=== PATIENT | male | born 1950 | race Caucasian/White ===

== ENCOUNTER 2020-09-09 14:28 | Emergency (ER) | payer MEDICARE, SELFPAY ==
[2020-09-09] VITALS (17 sets, daily range): BP systolic 111–127; BP diastolic 68–91; PULSE 53–78; RESP 16–17; TEMP 36.5; O2SAT 94–97
--- NOTE | ~2020-09-09 | CT_ITS ---
EXAMINATION: CT abdomen pelvis wo con DATE: 09/09/2020 16:24 INDICATION: Hematuria. Possible kidney stones. TECHNIQUE: Computed tomography (CT) of the abdomen and pelvis was performed without intravenous contr ast. The dose-length product was 246.31 mGy-cm. Automated exposure control and iterative reconstructi on technique were employed. COMPARISON: None. FINDINGS: There is a partially visualized 8 mm right lower lobe nodule, image 1. Heart size normal. T here is atherosclerosis of the aorta and coronary arteries. No evidence for aneurysm. There is a 6 mm left UPJ stone. There are multiple nonobstructing bilateral renal stones. No significant hydronephro sis. Bladder is decompressed limiting evaluation for wall thickening. The liver, spleen, pancreas, adrenal glands are unremarkable. Normal appendix. Nonobstructive bowel g as pattern. Small hiatal hernia. No free air or free fluid. There is moderate spondylosis at L4-5. No osteolytic or osteoblastic lesions. IMPRESSION: 1. Left UPJ stone measuring 6 mm without significant hydronephrosis. 2: Bilateral nonobstructing nephrolithiasis. 3: Partially visualized 8 mm pleural-based right lower lobe nodule,. Consider follow-up CT chest on a nonemergent basis. Reviewed, dictated and finalized at location A. IMPRESSION: 1. Left UPJ stone measuring 6 mm without significant hydronephrosis. 2: Bilateral nonobstructing nephrolithiasis. 3: Partially visualized 8 mm pleural-based right lower lobe nodule,. Consider f ollow-up CT chest on a nonemergent basis.
--- NOTE | ~2020-09-09 | XR_ITS ---
XR abdomen/kub 1V 09/09/2020 17:54 Indication: Blood in urine. Right flank pain. Procedure: KUB Comparison: No prior studies for comparison. Findings: There is left renal stone. Bowel gas pattern nonobstructive. There are pelvic phleboliths a nd vascular calcifications. Lung bases unremarkable. Impression: 1: Left nephrolithiasis. Reviewed, dictated and finalized at location A. Impression: 1: Left nephrolithiasis.
[2020-09-09 15:05] LABS: Basophils Percent Auto 0.7 % (0.2-1.2); Eosinophils Absolute Auto 0.2 K/mm3 (0-0.3); Eosinophils Percent Auto 3.1 % (0-4.4); Hematocrit 43.4 % (42.0-52.0); Hemoglobin 14.7 g/dL (14.0-18.0); Immature Granulocyte Absolute 0.01 K/mm3 (0.00-0.031); Immature Granulocyte Percent A 0.2 % (0-0.5); Lymphocytes Absolute Auto 1.87 K/mm3 (0.9-3.2); Lymphocytes Percent Auto 33.9 % (18.3-44.2); Mean Corpuscular HGB Conc 33.9 g/dl (32-36); Mean Corpuscular Hemoglobin 29.6 pg (26-34); Mean Corpuscular Volume 87.5 fl (80-100); Mean Platelet Volume 9.6 fl (7.4-10.4); Monocytes Absolute Auto 0.5 K/mm3 (0.1-0.6); Monocytes Percent Auto 8.9 % (2.6-8.5); Neutrophils Absolute Auto 2.9 K/mm3 (1.3-6.7); Neutrophils Percent Auto 53.2 % (45.5-73.1); Platelet Count Result 285 k/mm3 (150-375); Red Blood Count 4.96 M/mm3 (4.6-6.20); White Blood Count 5.5 K/mm3 (4.5-10.0)
[2020-09-09 15:16] LABS: Anion Gap 9 mmol/L (8-16); Blood Urea Nitrogen 17 mg/dL (9-20); Calcium 9.3 mg/dL (8.4-10.2); Carbon Dioxide 23 mmol/L (22-30); Chloride 107 mmol/L (98-107); Estimated CRCL calculation 71 ml/min; Estimated Glomerular Filt Rate > 60; Glucose 103 mg/dL (75-110); Potassium 3.9 mmol/L (3.4-5.0); Sodium 139 mmol/L (137-145)
[2020-09-09 15:20] LABS: Add Urine Microscopic? YES; Appearance Urine Cloudy (Clear); Bilirubin Urine Negative (Negative); Blood Urine 3+ (Negative); Color Urine Red (Yellow); Glucose Urine UA Negative (Negative); Ketones Urine Negative (Negative); Leukocyte Esterase Ur Negative LEU/UL (Negative); Mucus Urine Moderate /lpf; Nitrate Urine Positive (Negative); Protein Urine 2+ mg/dL (Negative); RBC Urine >75 /hpf (0-2); Specific Grav Ur 1.025 (1.001-1.035); Urobilinogen Urine Negative mg/dL (<2.0)
--- NOTE | 2020-09-09 16:07 | ED.MALEGU ---
HPI - Male Genitourinary General Chief complaint: Urogenital-Male Stated complaint: blood in urine Time Seen by Provider: 09/09/20 15:01 Source: patient Mode of arrival: ambulatory Limitations: no limitations History of Present Illness HPI Narrative: 70-year-old man History of kidney stones in the relatively distant past but no painful episodes anytime recently Has noted intermittent hematuria for the last 2 or 3 days Effectively has no other symptoms denies frequency dysuria Recently saw GI for blood in stool MD Complaint: other Onset (ago): day(s) Related Data Home Medications Medication Instructions Recorded Confirmed aspirin 81 mg tablet,delayed 81 mg PO DAILY 08/20/20 release atorvastatin 40 mg tablet 40 mg PO DAILY 08/20/20 metoprolol succinate PO 09/09/20 Allergies Allergy/AdvReac Type Severity Reaction Status Date / Time erythromycin base Allergy Mild Nausea Verified 09/09/20 14:29 Review of Systems Review of Systems: All systems reviewed & are unremarkable except as noted in HPI and below Constitutional: Constitutional: Denies chills, Denies fatigue, Denies fever(s), Denies headache(s) and Denies weakness Eyes: Eyes: Denies change in vision and Denies other visual disturbances ENT: Denies headache(s), Denies epistaxis, Denies nasal congestion and Denies sore throat Cardiovascular: Cardiovascular: Denies chest pain, Denies leg edema, Denies palpitations and Denies dyspnea Respiratory: Respiratory: Denies cough, Denies dyspnea and Denies wheezing Gastrointestinal: Gastrointestinal: Denies abdominal pain, Denies diarrhea, Denies nausea and Denies vomiting Comments: Hematochezia Genitourinary: Genitourinary: Reports hematuria, Denies dysuria, Denies urinary frequency and Denies urinary incontinence Musculoskeletal: Musculoskeletal: Denies deformity, Denies arthralgias, Denies joint swelling, Denies muscle weakness and Denies numbness Integumentary/Breasts: Skin/Breast: Denies rash, Denies unusual bruising and Denies wounds Neurologic: Denies Abnormal speech present, Denies headache(s), Denies focal weakness, Denies numbness and Denies weakness Psychiatric: Psychiatric: Reports no additional psychiatric complaints Endocrine: Endocrine: Denies fatigue and Denies palpitations Hematologic/Lymphatic: Hematologic/Lymphatic: Denies easy bleeding and Denies easy bruising Allergic/Immunologic: Allergic/Immunologic: Denies wheezing PMFSH Family History Family History Father Cerebrovascular accident Malignant neoplasm of prostate Mother Cerebrovascular accident Social History Social History Smoking packs per day: 1 Smoking cigarettes per day: 20.0 Years smoked: 10 Smoking pack-years: 10.00 Smoking status: Former smoker Tobacco type: cigarettes Second hand tobacco smoke exposure: Yes Smoking end date: 11/12/76 Alcohol intake: never Substance use: never Substance use type: does not use Gender identity (if verbalized by the patient): Male Exam Const: General: no acute distress, well developed and awake Nutritional Appearance: well nourished Orientation/consciousness: patient oriented x3 (alert) Limitations: no limitations HENMT: Head: normocephalic and atraumatic Ears: external ears normal General nose exam: No nasal discharge present and no epistaxis Face and sinus: face symmetric Eyes: Conjunctivae: conjunctivae normal Sclera: sclerae normal EOM: EOMs intact bilaterally Neck: Neck: normal visual inspection, supple and no JVD Chest: Chest palpation & inspection: deferred Resp: Effort & Inspection: normal respiratory effort Auscultation: clear to auscultation bilaterally, no rales, no rhonchi, no wheezes and other (BS =) Cardio: Rate: regular rate Rhythm: regular rhythm Heart sounds: no gallops and no murmurs GI: Inspectio
== END 2020-09-09 17:59 | disposition home or self-care (01) ==
PROVIDERS: Emergency Medicine; Emergency Provider Emergency Medicine; PCP Family Medicine
DX: N20.0 Calculus of kidney (principal); R31.9 Hematuria, unspecified; Z87.442 Personal history of urinary calculi; R91.1 Solitary pulmonary nodule; Z87.891 Personal history of nicotine dependence
CPT/HCPCS: 36415; 74018; 74176; 80048; 81001; 85025; 87077; 87086; 87088; 87186; 99284

== ENCOUNTER 2020-09-11 22:42 | Emergency (ER) | payer MEDICARE, SELFPAY ==
--- NOTE | ~2020-09-11 | CT_ITS ---
EXAMINATION: CT abdomen pelvis wo con DATE: 09/11/2020 23:34 INDICATION: Left flank pain TECHNIQUE: Computed tomography (CT) of the abdomen and pelvis was performed without intravenous contr ast. The dose-length product (DLP) was 552.29 mGy-cm. Automated exposure control and iterative recons truction technique were employed. COMPARISON: 09/09/2020 FINDINGS: Minimal dependent atelectasis is present in the lung bases. The heart size is normal. The l iver, spleen, pancreas, gallbladder, and adrenal glands are normal. There is a 6 mm stone in the left proximal ureter which has migrated from the ureteropelvic junction and causes mild left hydronephros is. Nonobstructing stones of the right kidney measure up to 4 mm. Nonobstructing stones of the left k idney measure up to 6 mm. No pathologically enlarged abdominal or pelvic lymph nodes are identified. There is no free intraperitoneal gas or evidence of bowel obstruction. The appendix is normal. There is calcified atherosclerosis of the aorta and many of the other arteries. There is moderate lumbar sp ondylosis. A fat-containing umbilical hernia is noted. IMPRESSION: 1. 6 mm stone in the proximal left ureter migrated from the ureteropelvic junction causing mild hydro nephrosis. 2. Bilateral nonobstructing nephrolithiasis. Reviewed, dictated and finalized at location A. 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 6 mm stone in the proximal left ureter migrated from the ureteropelvic junct ion causing mild hydronephrosis. 2. Bilateral nonobstructing nephrolithiasis.
[2020-09-11 22:49] VITALS: BP 152/99; PULSE 45; RESP 17; O2SAT 95
[2020-09-11 22:52] VITALS: BP 152/99; PULSE 51; RESP 16; TEMP 36.6; O2SAT 97
[2020-09-11] MEDS: MORPHINE SULFATE (*CRX) 4 MG/ML INJ IV PUSH (23:14)
[2020-09-11] MEDS: SODIUM CHLORIDE 0.9% IV 1,000 ML 999 ML IV CONT (23:14)
[2020-09-11 23:15] LABS: Basophils Absolute Auto 0.1 K/mm3 (0.0-0.1); Basophils Percent Auto 0.4 % (0.2-1.2); Eosinophils Absolute Auto 0.1 K/mm3 (0-0.3); Eosinophils Percent Auto 0.4 % (0-4.4); Hematocrit 44.7 % (42.0-52.0); Hemoglobin 15.1 g/dL (14.0-18.0); Immature Granulocyte Absolute 0.02 K/mm3 (0.00-0.031); Immature Granulocyte Percent A 0.2 % (0-0.5); Lymphocytes Absolute Auto 1.98 K/mm3 (0.9-3.2); Lymphocytes Percent Auto 16.2 % (18.3-44.2); Mean Corpuscular HGB Conc 33.8 g/dl (32-36); Mean Corpuscular Volume 88.7 fl (80-100); Mean Platelet Volume 9.5 fl (7.4-10.4); Monocytes Absolute Auto 0.8 K/mm3 (0.1-0.6); Monocytes Percent Auto 6.6 % (2.6-8.5); Neutrophils Absolute Auto 9.3 K/mm3 (1.3-6.7); Neutrophils Percent Auto 76.2 % (45.5-73.1); Platelet Count Result 291 k/mm3 (150-375); Red Blood Count 5.04 M/mm3 (4.6-6.20); Red Cell Distribution Width 13.2 % (11.5-14.5); White Blood Count 12.2 K/mm3 (4.5-10.0)
[2020-09-11 23:27] LABS: Anion Gap 12 mmol/L (8-16); Blood Urea Nitrogen 14 mg/dL (9-20); Calcium 9.8 mg/dL (8.4-10.2); Carbon Dioxide 20 mmol/L (22-30); Chloride 108 mmol/L (98-107); Estimated CRCL calculation 59 ml/min; Estimated Glomerular Filt Rate > 60; Glucose 123 mg/dL (75-110); Potassium 4.1 mmol/L (3.4-5.0); Sodium 140 mmol/L (137-145)
[2020-09-11 23:45] VITALS: BP 144/91; PULSE 55; RESP 18; O2SAT 97
--- NOTE | 2020-09-12 00:07 | ED.ABDPAIN ---
HPI - Abdominal Pain General Chief Complaint: Abdominal Pain Stated Complaint: kidney stone pain Time Seen by Provider: 09/11/20 22:56 History of Present Illness HPI narrative: Patient is a 70-year-old male who presents the ER with left flank pain. Ongoing for last couple days. Has recently been diagnosed with a kidney stone. He has not passed it. He is not seeing any blood in his urine at this time. Pain radiates into his groin. No dysuria or fever. Mild nausea and vomiting associated with this. Has been taking [id number] pain medication without relief. Related Data Home Medications Medication Instructions Recorded Confirmed aspirin 81 mg tablet,delayed 81 mg PO DAILY 08/20/20 release atorvastatin 40 mg tablet 40 mg PO DAILY 08/20/20 metoprolol succinate PO 09/09/20 Allergies Allergy/AdvReac Type Severity Reaction Status Date / Time erythromycin base Allergy Mild Nausea Verified 09/09/20 14:29 Review of Systems Review of Systems: All systems reviewed & are unremarkable except as noted in HPI and below Constitutional: Constitutional: Denies chills, Denies fever(s) and Denies weakness ENT: Denies nasal congestion and Denies sore throat Cardiovascular: Cardiovascular: Denies chest pain and Denies radiating jaw, neck or arm pain Gastrointestinal: Gastrointestinal: Reports abdominal pain, Denies diarrhea, Reports nausea and Reports vomiting Genitourinary: Genitourinary: Denies hematuria, Denies dysuria and Reports urinary frequency PMFSH Past Medical History Medical History (Updated 09/12/20 @ 01:36 CDT by Adrián Estrella MD) CAD (coronary artery disease) Hyperlipemia Hypertension Family History Family History Father Cerebrovascular accident Malignant neoplasm of prostate Mother Cerebrovascular accident Social History Social History Smoking packs per day: 1 Smoking cigarettes per day: 20.0 Years smoked: 10 Smoking pack-years: 10.00 Smoking status: Former smoker Tobacco type: cigarettes Second hand tobacco smoke exposure: Yes Smoking end date: 11/12/76 Alcohol intake: never Substance use: never Substance use type: does not use Gender identity (if verbalized by the patient): Male Exam Narrative: Exam Narrative: GENERAL: Well-appearing, well-nourished, and in no acute distress. HEAD: Normocephalic, atraumatic. CHEST: Clear to auscultation. No respiratory distress. HEART: Regular rate and rhythm. Normal peripheral pulses. ABDOMEN: Soft, nontender, nondistended. EXTREMITIES: Normal range of motion. No edema. SKIN: Warm, dry, no rash. NEURO: Alert and oriented x3. PSYCH: Normal mood and affect. Course Course Emergency Course: Pain improved with morphine x2. No UTI. Feels he may benefit from [place] and Flomax at home. He needs follow-up with his urologist. Vital Signs Vital signs: Vital Signs Pulse Rate 45 L 09/11/20 22:49 Respiratory Rate 17 09/11/20 22:49 Blood Pressure 152/99 H 09/11/20 22:49 Pulse Oximetry 95 09/11/20 22:49 Temperature 97.9 F 09/11/20 22:52 Pulse Rate 63 09/12/20 00:40 Respiratory Rate 16 09/12/20 00:40 Blood Pressure 132/76 09/12/20 00:40 Pulse Oximetry 97 09/12/20 00:40 MDM - Abdominal Pain Lab Data Result diagrams: 09/11/20 23:10 09/11/20 23:10 Labs: Lab Results 09/11/20 09/11/20 09/12/20 Range/Units 23:10 23:10 01:06 SUPER[employer]PER[employer] WBC 12.2 H (4.5-10.0) K/mm3 RBC 5.04 (4.6-6.20) M/mm3 Hgb 15.1 (14.0-18.0) g/dL Hct 44.7 (42.0-52.0) % MCV 88.7 (80-100) fl MCH 30.0 (26-34) pg MCHC 33.8 (32-36) g/dl RDW 13.2 (11.5-14.5) % Plt Count 291 (150-375) k/mm3 MPV 9.5 (7.4-10.4) fl Immature Gran % (Auto) 0.2 (0-0.5) % Neut % (Auto) 76.2 H (45.5-73.1) % Lymph % (Auto) 16.2 L (18.3-44.2)
[2020-09-12 00:40] VITALS: BP 132/76; PULSE 63; RESP 16; O2SAT 97
[2020-09-12] MEDS: MORPHINE SULFATE (*CRX) 4 MG/ML INJ IV PUSH (00:40)
[2020-09-12 01:19] LABS: Add Urine Microscopic? YES; Appearance Urine Clear (Clear); Bilirubin Urine Negative (Negative); Blood Urine 3+ (Negative); Color Urine Yellow (Yellow); Glucose Urine UA Negative (Negative); Ketones Urine 1+ mg/dL (Negative); Leukocyte Esterase Ur Negative LEU/UL (Negative); Mucus Urine Few /lpf; Nitrate Urine Negative (Negative); Protein Urine 1+ mg/dL (Negative); RBC Urine >75 /hpf (0-2); Specific Grav Ur 1.027 (1.001-1.035); Squamous Epithelial Cell Urine Rare /hpf (Few); Urobilinogen Urine Negative mg/dL (<2.0); WBC Urine 0-3 /hpf
[2020-09-12 01:50] VITALS: BP 130/80; PULSE 59; RESP 16; O2SAT 96
== END 2020-09-12 01:50 | disposition home or self-care (01) ==
PROVIDERS: Emergency Provider Emergency Medicine; PCP Family Medicine
DX: N13.2 Hydronephrosis with renal and ureteral calculous obstruction (principal); I25.10 Atherosclerotic heart disease of native coronary artery without angina pectoris; E78.5 Hyperlipidemia, unspecified; I10 Essential (primary) hypertension; Z79.82 Long term (current) use of aspirin; Z87.891 Personal history of nicotine dependence
CPT/HCPCS: 36415; 74176; 80048; 81001; 85025; 96361; 96374; 96376; 99284; J2270; J7030

== ENCOUNTER 2020-09-16 09:08 | Outpatient (CLI) | payer MEDICARE, SELFPAY ==
--- NOTE | ~2020-09-16 | XR_ITS ---
EXAMINATION: XR abdomen/kub 1V INDICATION: Left ureteral stone TECHNIQUE: Supine views of the abdomen were obtained on 2 radiographs. COMPARISON: 09/09/2020; CT, 09/11/2020 FINDINGS: A 6 mm calcification projects in the left pelvis at the expected location of the distal ure ter, consistent with known left ureteral. An unchanged phlebolith is noted in the left pelvis. The nina wel gas pattern is normal. The visualized lung bases are clear. There is mild osteoarthritis of the h ips. IMPRESSION: 1. Interval distal migration of the known left ureteral stone to the distal ureter. Reviewed, dictated and finalized at location A. 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 Interval distal migration of the known left ureteral stone to the distal ure ter.
== END 2020-09-16 09:09 | disposition home or self-care (01) ==
PROVIDERS: PCP Family Medicine; Visit Provider Urology
DX: N20.1 Calculus of ureter (principal)
CPT/HCPCS: 74018

== ENCOUNTER 2020-09-17 01:56 | Day surgery (SDC) | payer MEDICARE, SELFPAY ==
[2020-09-16 10:45] VITALS: BMI 25.1
--- NOTE | 2020-09-16 12:51 | WPDANESEPPF ---
Anes - Initial Pre Proc Eval Procedure: Operation Date: 09/17/20 15:30 Proposed Procedures p Cystoscopy, Left Ureteroscopy, Left Retrograde Pyelogram, Left Stone Extraction, - Duran Dubon MD s Possible Holmium Laser Procedure, Possible Stent Placement - Duran Dubon MD Date/Time: 09/16/20 12:51 Surgeon: Duarn Dubon MD Pre Op Diagnosis: left ureteral calculus Patient Data Age: 70 Gender: M Height: 1.78 m Weight: 79.5 kg Allergies Allergy/AdvReac Type Severity Reaction Status Date / Time erythromycin base Allergy Mild Nausea Verified 09/16/20 10:41 Home Medications Medication Instructions Recorded Confirmed Type aspirin 81 mg tablet,delayed 81 mg PO DAILY 08/20/20 09/16/20 History release atorvastatin 40 mg tablet 40 mg PO DAILY 08/20/20 09/16/20 History metoprolol succinate 25 mg PO HS 09/09/20 09/16/20 History nitrofurantoin monohyd/m-cryst 100 mg PO Q12H 5 Days #20 cap 09/09/20 09/16/20 Rx [Macrobid] hydrocodone-acetaminophen 1 tablet PO Q6H PRN #20 tablet 09/12/20 09/16/20 Rx tamsulosin 0.4 mg PO DAILY #7 cap 09/12/20 09/16/20 Rx ECG: nsr Patient hx anesthesia problems: none Family hx anesthesia problems: none PMFSH Past Medical History Medical History (Updated 09/16/20 @ 12:56 by Christopher Blandon MD) Bloody stool BPH (benign prostatic hyperplasia) CAD (coronary artery disease) Hyperlipemia Hypertension Family History Family History Father Cerebrovascular accident Malignant neoplasm of prostate Mother Cerebrovascular accident Social History Social History Smoking packs per day: 1 Smoking cigarettes per day: 20.0 Years smoked: 10 Smoking pack-years: 10.00 Smoking status: Former smoker Tobacco type: cigarettes Second hand tobacco smoke exposure: Yes Smoking end date: 11/12/76 Additional smoking assessment comments: STATES SMOKED FOR 10YRS QUIT AGE MID 20'S Alcohol intake: never Substance use: never Substance use type: does not use Living arrangements: alone Gender identity (if verbalized by the patient): Male Spiritual care concerns: No Anes - Eval Final PreProcedure Day of Procedure 09/16/20 12:51 Patient weight: normal Heart: regular rate and rhythm Lungs: clear to auscultation and normal air movement Airway: Mallampati scale class II Neurological: alert and oriented Last oral intake: >/= 8 hours ASA classification: III Emergent: no Anesthetic plan: proceed Anesthesia type and monitoring: general LMA and ETT Informed Consent: The patient's anesthetic plan and its attendant risks and benefits were discussed with the patient/family/POA. Questions were solicited and answers provided to the satisfaction of the patient/family/POA.
--- NOTE | ~2020-09-17 | XR_ITS ---
EXAMINATION: XR retrograde pyelo w/stent LT DATE: 09/17/2020 17:56 INDICATION: Left ureteral stone. TECHNIQUE: 7 intraoperative fluoroscopic views of the abdomen and pelvis were obtained. I was not pre sent. Fluoroscopy exposure time was 19 seconds. COMPARISON: CT abdomen and pelvis 09/11/2020 FINDINGS: The left-sided retrograde pyelogram is unremarkable. The final images demonstrate a left in ternal ureteral stent in expected position. IMPRESSION: 1. Left internal ureteral stent in expected position. Reviewed, dictated and finalized at location A. IC INTERVIEWER
--- NOTE | 2020-09-17 14:00 | ECG_ITS ---
Measurements Intervals [place] Rate: 54 P: 29 SC: 149 QRS: 13 QRSD: 97 T: 39 QT: 431 QTc: 411 Interpretive Statements SINUS BRADYCARDIA EARLY PRECORDIAL R/S TRANSITION BORDERLINE ECG Electronically Signed On 09-17-2020 14:40:02 SUPERVISOR [employer] by Sabino Miller D.O.
--- NOTE | 2020-09-17 14:07 | WPDHPUPDATE1 ---
History and Physical Update Update Date/Time: 09/17/20 14:07 History and Physical has been reviewed, including an updated exam of the patient. There are NO changes in the patient's condition. Risks, benefits, and alternatives have been discussed and questions answered. Patient agrees to proceed with procedure. Plan for cysto, left retrograde, left ureteroscopy with stone extraction, possible laser and stent placement.
[2020-09-17 14:15] VITALS: BP 119/72; PULSE 56; RESP 18; TEMP 36.2; O2SAT 97
[2020-09-17] MEDS: LACTATED RINGERS 1,000 ML 30 ML IV CONT (14:15)
[2020-09-17] MEDS: ceFAZolin 2 GM/D5W 50 ML 2 GM/50 ML BAG IVPB (17:23)
--- NOTE | 2020-09-17 17:52 | PM.PROC ---
Procedure Note - Detailed Date of procedure: 09/17/20 Pre-op diagnosis: left ureteral calculus Post-op diagnosis: same Procedure performed: Cystoscopy, left retrograde pyelogram, left ureteroscopy with holmium laser, stone extraction, left stent placement 4.8 [place] contour Description of procedure: patient is taken to the operative suite and correctly identified. Once anesthesia was obtained he was placed in dorsal lithotomy position and prepped and draped usual sterile fashion. Twenty-two [place] scope was inserted in the bladder left ureteral orifice was cannulated with a guidewire. It was dilated with a 8/10 dilator. Rigid ureteral scope was then inserted the stone was visualized. It was too large to retrieve 1 piece. Using a laser fiber we fragmented in multiple pieces. The largest was sent for analysis. Reinspection revealed no residual stones. Pyelogram was then performed. There were no filling defects noted. 4.8 [place] contour stent was then placed with the proximal end coiled in the renal pelvis and the distal in the bladder. Bladder was drained 2% viscous lidocaine was inserted urethra. Patient should state that he had a mildly enlarged prostate there were no tumors noted in the bladder. No median lobe identified. Rectal exam was then performed at termination procedure he with smooth about 40 g without any nodules. Surgeon: Duran Dubon MD Drains: Yes Packing: No Pathology: yes Complications: No immediate complications Condition: stable Disposition: PACU
[2020-09-17 17:56] VITALS: BP 110/69; PULSE 52; RESP 16; TEMP 36.3; O2SAT 100
[2020-09-17 18:10] VITALS: BP 125/77; PULSE 54; RESP 10; O2SAT 100
[2020-09-17 18:25] VITALS: BP 125/78; PULSE 57; RESP 14; O2SAT 99
[2020-09-17 18:48] VITALS: BP 128/74; PULSE 73
[2020-09-17 19:15] VITALS: BP 126/66; PULSE 58
== END 2020-09-17 19:30 | disposition home or self-care (01) ==
PROVIDERS: PCP Family Medicine; Visit Provider Urology
PROC: (CPT 52352; principal; 2020-09-17 15:30)
PROC: (CPT 52356; 2020-09-17 15:30)
DX: N20.1 Calculus of ureter (principal); I10 Essential (primary) hypertension; E78.5 Hyperlipidemia, unspecified; I25.10 Atherosclerotic heart disease of native coronary artery without angina pectoris; N40.0 Benign prostatic hyperplasia without lower urinary tract symptoms; Z79.82 Long term (current) use of aspirin; Z87.891 Personal history of nicotine dependence
CPT/HCPCS: 52356; 74420; 82365; 88300; 93005; A9270; C1769; C2617; J0690; J1100; J2405; J2704; J3010; J7120; Q9966

== ENCOUNTER 2020-09-24 02:37 | Outpatient (CLI) | payer MEDICARE, SELFPAY ==
[2020-09-24 19:52] LABS: SARS-CoV-2 RNA PCR Negative
== END 2020-09-24 02:38 | disposition home or self-care (01) ==
LOC: ANHCOVIDDT 02:37
PROVIDERS: PCP Family Medicine; Visit Provider Internal Medicine Gastroenterology
DX: Z01.812 Encounter for preprocedural laboratory examination (principal); Z20.828 Contact with and (suspected) exposure to other viral communicable diseases
CPT/HCPCS: 87635; C9803; U0003

== ENCOUNTER 2020-09-27 01:04 | Day surgery (SDC) | payer MEDICARE, SELFPAY ==
[2020-09-21 08:46] VITALS: BMI 25.0
--- NOTE | 2020-09-26 13:29 | WPDANESEPP ---
Anes - Eval Pre Procedure Procedure: Operation Date: 09/27/20 07:30 Proposed Procedures p Colonoscopy - Chace Engel MD Date/Time: 09/26/20 13:29 Pre Op Diagnosis: melena Patient Data Age: 70 Gender: M Height: 1.78 m Weight: 79 kg Allergies Allergy/AdvReac Type Severity Reaction Status Date / Time erythromycin base Allergy Mild Nausea Verified 09/21/20 08:40 Home Medications Medication Instructions Recorded Confirmed Type aspirin 81 mg tablet,delayed 81 mg PO DAILY 08/20/20 09/21/20 History release atorvastatin 40 mg tablet 40 mg PO DAILY 08/20/20 09/21/20 History metoprolol succinate 25 mg PO HS 09/09/20 09/21/20 History Patient hx anesthesia problems: none Family hx anesthesia problems: none PMFSH Past Medical History Medical History Bloody stool BPH (benign prostatic hyperplasia) CAD (coronary artery disease) Depression Hyperlipemia Hypertension Mitral valve prolapse Family History Family History Father Cerebrovascular accident Malignant neoplasm of prostate Mother Cerebrovascular accident Social History Social History Smoking packs per day: 1 Smoking cigarettes per day: 20.0 Years smoked: 10 Smoking pack-years: 10.00 Smoking status: Never smoker Tobacco type: cigarettes Second hand tobacco smoke exposure: Yes Smoking end date: 11/12/76 Additional smoking assessment comments: STATES SMOKED FOR 10YRS QUIT AGE MID 20'S Alcohol intake: never Substance use: never Substance use type: does not use Gender identity (if verbalized by the patient): Male Spiritual care concerns: No Exam Day of Procedure 09/26/20 13:29
[2020-09-27] MEDS: LACTATED RINGERS 1,000 ML 150 ML IV CONT (06:29)
[2020-09-27 06:31] VITALS: BP 112/73; PULSE 79; RESP 18; TEMP 36.4; O2SAT 97; BMI 25.0
--- NOTE | 2020-09-27 07:23 | WPDANESEPPF ---
Anes - Initial Pre Proc Eval Procedure: Operation Date: 09/27/20 07:30 Proposed Procedures p Colonoscopy - Chace Engel MD Date/Time: 09/27/20 07:23 Surgeon: Chace Engel MD Pre Op Diagnosis: melena Patient Data Age: 70 Gender: M Height: 5 ft 10 in Weight: 79 kg Last Vital Signs Temp 97.5 F L 09/27/20 06:31 Pulse 79 09/27/20 06:31 Resp 18 09/27/20 06:31 BP 112/73 09/27/20 06:31 Pulse Ox 97 09/27/20 06:31 Allergies Allergy/AdvReac Type Severity Reaction Status Date / Time erythromycin base Allergy Mild Nausea Verified 09/27/20 06:30 Home Medications Medication Instructions Recorded Confirmed Type aspirin 81 mg tablet,delayed 81 mg PO DAILY 08/20/20 09/27/20 History release atorvastatin 40 mg tablet 40 mg PO DAILY 08/20/20 09/21/20 History metoprolol succinate 25 mg PO HS 09/09/20 09/21/20 History Patient hx anesthesia problems: none Family hx anesthesia problems: none PMFSH Past Medical History Medical History Bloody stool BPH (benign prostatic hyperplasia) CAD (coronary artery disease) Depression Hyperlipemia Hypertension Mitral valve prolapse Family History Family History Father Cerebrovascular accident Malignant neoplasm of prostate Mother Cerebrovascular accident Social History Social History Smoking packs per day: 1 Smoking cigarettes per day: 20.0 Years smoked: 10 Smoking pack-years: 10.00 Smoking status: Former smoker Tobacco type: cigarettes Second hand tobacco smoke exposure: Yes Smoking end date: 11/12/76 Additional smoking assessment comments: STATES SMOKED FOR 10YRS QUIT AGE MID 20'S Alcohol intake: never Substance use: never Substance use type: does not use Living arrangements: alone Gender identity (if verbalized by the patient): Male Spiritual care concerns: No Anes - Eval Final PreProcedure Day of Procedure 09/27/20 07:23 Patient weight: normal Heart: regular rate and rhythm Lungs: clear to auscultation Airway: Mallampati scale class II Neurological: alert and oriented Last oral intake: >/= 8 hours ASA classification: III Emergent: no Anesthetic plan: proceed Anesthesia type and monitoring: general GIVS and standard monitoring Informed Consent: The patient's anesthetic plan and its attendant risks and benefits were discussed with the patient/family/POA. Questions were solicited and answers provided to the satisfaction of the patient/family/POA.
--- NOTE | 2020-09-27 07:36 | WPDHPUPDATE1 ---
History and Physical Update Update Date/Time: 09/27/20 07:36 History and Physical has been reviewed, including an updated exam of the patient. There are NO changes in the patient's condition. Risks, benefits, and alternatives have been discussed and questions answered. Patient agrees to proceed with procedure.
[2020-09-27 07:59] VITALS: BP 94/62; PULSE 67; RESP 19; O2SAT 96
[2020-09-27 08:09] VITALS: BP 103/69; PULSE 69; RESP 22; O2SAT 97
[2020-09-27 08:19] VITALS: BP 111/69; PULSE 63; RESP 20; O2SAT 97
== END 2020-09-27 08:33 | disposition home or self-care (01) ==
PROVIDERS: PCP Family Medicine; Visit Provider Internal Medicine Gastroenterology
PROC: 0DJD8ZZ Inspection of Lower Intestinal Tract, Via Natural or Artificial Opening Endoscopic (ICD-10-PCS; CPT 45378; principal; 2020-09-27 07:30)
DX: K62.5 Hemorrhage of anus and rectum (principal); K63.3 Ulcer of intestine; K52.9 Noninfective gastroenteritis and colitis, unspecified; K64.4 Residual hemorrhoidal skin tags; K64.8 Other hemorrhoids; I10 Essential (primary) hypertension; E78.5 Hyperlipidemia, unspecified; I34.1 Nonrheumatic mitral (valve) prolapse; I25.10 Atherosclerotic heart disease of native coronary artery without angina pectoris; N40.0 Benign prostatic hyperplasia without lower urinary tract symptoms; F32.9 Major depressive disorder, single episode, unspecified; Z79.82 Long term (current) use of aspirin; Z87.891 Personal history of nicotine dependence
CPT/HCPCS: 45380; 88305; J2704; J7120

== ENCOUNTER 2020-11-02 09:50 | Outpatient (CLI) | payer MEDICARE, SELFPAY ==
--- NOTE | ~2020-11-02 | XR_ITS ---
EXAMINATION: XR abdomen/kub 1V INDICATION: Left ureteral stone TECHNIQUE: Supine views of the abdomen were obtained on 2 radiographs. COMPARISON: 09/16/2020 FINDINGS: A 5 mm calcification projects in the left pelvis at the expected location of the left dista l ureter. Stable pelvic phleboliths are noted. Stones of the kidneys measure up to 2 mm on the right and 5 mm on the left. The bowel gas pattern is normal. There is mild lumbar spondylosis and mild oste oarthritis of the hips. IMPRESSION: 1. 5 mm left pelvic calcification which could reflect a previously described distal ureteral stone. 2. Bilateral nephrolithiasis. Reviewed, dictated and finalized at location A. ER CREW WORKER IMPRESSION: 1. 5 mm left pelvic calcification which could reflect a previously described di stal ureteral stone. 2. Bilateral nephrolithiasis.
== END 2020-11-02 09:51 | disposition home or self-care (01) ==
LOC: ANHIMG 09:54
PROVIDERS: PCP Family Medicine; Visit Provider Urology
DX: N20.2 Calculus of kidney with calculus of ureter (principal)
CPT/HCPCS: 74018

== ENCOUNTER → 2020-11-02 13:24 | Outpatient (CLI) | payer MEDICARE, SELFPAY ==
--- NOTE | ~2020-11-02 | XR_ITS ---
EXAMINATION: XR heel LT min 2V DATE: 11/02/2020 13:48 INDICATION: Left heel pain. TECHNIQUE: 2 views of left calcaneus were obtained. COMPARISON: None. FINDINGS: Bone alignment is normal. No fracture. Joint spaces are normal. There are enthesophytes at the posterior and plantar aspects of calcaneal tuberosity. IMPRESSION: 1. No fracture. Reviewed, dictated and finalized at location A. NOMY TECHNICIAN IMPRESSION: 1. No fracture.
--- NOTE | ~2020-11-02 | XR_ITS ---
EXAMINATION: XR foot LT min 3V DATE: 11/02/2020 13:48 INDICATION: Left foot pain. TECHNIQUE: 4 views of left foot were obtained. COMPARISON: None. FINDINGS: Bone alignment is normal. No fracture. There is mild osteoarthrosis of first metatarsophala ngeal joint and some of the interphalangeal joints. There are enthesophytes at the posterior and plan tar aspects of calcaneal tuberosity. IMPRESSION: 1. Mild polyarticular osteoarthritis. Reviewed, dictated and finalized at location A. RUCTIONAL SERVICES SPECIALIST
== END ==
PROVIDERS: PCP Family Medicine; Visit Provider Physician Assistant
DX: M19.072 Primary osteoarthritis, left ankle and foot (principal)
CPT/HCPCS: 73630; 73650

== ENCOUNTER 2021-03-19 09:04 | Outpatient (CLI) | payer MEDICARE, SELFPAY ==
--- NOTE | ~2021-03-19 | CT_ITS ---
EXAMINATION: CT abdomen pelvis wo/w con DATE: 03/19/2021 09:30 INDICATION: Renal mass TECHNIQUE: Computed tomography (CT) of the abdomen and pelvis was performed without and with 100 cc O mnipaque 350 intravenous contrast. The dose-length product was 1137.50 mGy-cm. Automated exposure con trol and iterative reconstruction technique were employed. COMPARISON: 09/11/2020 FINDINGS: there are mild emphysematous changes in the lung bases. Heart size normal. No significant p leural or pericardial effusion. Small hiatal hernia.. There are nonobstructing bilateral renal stones. There is gallstone. Fat-containing umbilical hernia. The liver, spleen, pancreas, adrenal glands are unremarkable. There is moderate atherosclerosis of th e aorta without aneurysm. Nonobstructive bowel gas pattern. Normal appendix. There is a nonenhancing 6 mm exophytic right renal lesion, most likely complicated cysts. There is a 12 mm hypodense lesion lower pole of the left kidney measuring 20 Hounsfield units, compatible with a cyst. There are multiple smaller additional subcentimeter hypodense lesions of the kidneys, most lik case benign cysts. Mild-moderate lumbar spondylosis. IMPRESSION: 1. Multiple low density lesions of the kidneys, most likely combination of benign simple and complica garcia cysts. Many of these are too small to adequately characterize. 2: Bilateral nonobstructing nephrolithiasis. Reviewed, dictated and finalized at location A. IMPRESSION: 1. Multiple low density lesions of the kidneys, most likely combination of crys gn simple and complicated cysts. Many of these are too small to adequately tray acterize. 2: Bilateral nonobstructing nephrolithiasis.
--- NOTE | ~2021-03-19 | XR_ITS ---
XR abdomen/kub 1V 03/19/2021 09:21 INDICATION: Renal mass TECHNIQUE: KUB COMPARISON: Comparison to multiple prior studies sequentially, with oldest reviewed study dated 08/13. FINDINGS: Bowel gas pattern is normal. Moderate colonic fecal loading. There is no evidence of free a ir, mass, organomegaly, ascites or obstruction. No abnormal calculi are seen. The bones appear inta ct. IMPRESSION: 1: No acute abdominal abnormality identified. Reviewed, dictated and finalized at location A.
[2021-03-19 09:30] LABS: Estimated Glomerular Filt Rate > 60
== END 2021-03-19 09:05 | disposition home or self-care (01) ==
LOC: ANHIMG 09:05
PROVIDERS: PCP Family Medicine; Visit Provider Urology
DX: N28.89 Other specified disorders of kidney and ureter (principal); N20.0 Calculus of kidney
CPT/HCPCS: 74018; 74178; Q9967

== ENCOUNTER 2023-05-25 03:29 | Day surgery (SDC) | payer MEDICARE, SELFPAY ==
[2023-05-14 13:58] VITALS: BMI 27.8
[2023-05-25 08:41] VITALS: BP 126/83; PULSE 52; RESP 18; O2SAT 100; BMI 27.3
[2023-05-25] MEDS: LACTATED RINGERS 1,000 ML 150 ML IV CONT (08:55)
--- NOTE | 2023-05-25 09:41 | P.PNAN_ITS ---
Anes - Initial Pre Proc Eval Procedure: Operation Date: 05/25/23 09:45 Proposed Procedures p Esophagogastroduodenoscopy - Chace Engel MD Date/Time: 05/25/23 09:41 Surgeon: Chace Engel MD Pre Op Diagnosis: GERD Patient Data Age: 73 Gender: M Height: 1.75 m Weight: 84 kg Last Vital Signs Pulse 52 L 05/25/23 08:41 Resp 18 05/25/23 08:41 BP 126/83 05/25/23 08:41 Pulse Ox 100 05/25/23 08:41 O2 Del Method Room Air 05/25/23 08:41 Allergies Allergy/AdvReac Type Severity Reaction Status Date / Time erythromycin base Allergy Mild Nausea Verified 05/14/23 13:59 Home Medications Medication Instructions Recorded Confirmed Type atorvastatin 40 mg tablet 40 mg PO DAILY 08/20/20 05/14/23 History metoprolol succinate 25 mg 25 mg PO HS 09/09/20 05/14/23 History tablet,extended release 24 hr Patient hx anesthesia problems: none Family hx anesthesia problems: none Results Review: All pre-operative results and documents have been reviewed as part of the pre- operative evaluation. FOR[facility]LY [facility] Past Medical History Medical History (Updated 04/26/23 @ 09:18 by Chace Engel MD) Bloating Bloody stool BPH (benign prostatic hyperplasia) CAD (coronary artery disease) Depression GERD (gastroesophageal reflux disease) Hyperlipemia Hypertension Mitral valve prolapse Nephrolithiasis Family History Family History Father Cerebrovascular accident Malignant neoplasm of prostate Mother Cerebrovascular accident Social History Social History Smoking packs per day: 1 Smoking cigarettes per day: 20.0 Years smoked: 10 Smoking pack-years: 10.00 Smoking status: Former smoker Tobacco type: cigarettes Second hand tobacco smoke exposure: Yes Smoking end date: 11/12/76 Additional smoking assessment comments: STATES SMOKED FOR 10YRS QUIT AGE MID 22'S Alcohol intake: never Substance use: never Substance use type: does not use Living arrangements: alone Occupation/Education: occupation Gender identity (if verbalized by the patient): Male Spiritual care concerns: No Anes - Eval Final PreProcedure Day of Procedure 05/25/23 09:41 Patient weight: normal Heart: regular rate and rhythm Lungs: clear to auscultation Airway: Mallampati scale class II Neurological: alert and oriented Last oral intake: >/= 8 hours ASA classification: III Emergent: no Anesthetic plan: proceed Anesthesia type and monitoring: general GIVS and standard monitoring Results Review: All pre-operative results and documents have been reviewed as part of the pre- operative evaluation. Informed Consent: The patient's anesthetic plan and its attendant risks and benefits were discussed with the patient/family/POA. Questions were solicited and answers provided to the satisfaction of the patient/family/POA.
--- NOTE | 2023-05-25 10:18 | WPDHPUPDATE1 ---
History and Physical Update Update Date/Time: 05/25/23 10:18 History and Physical has been reviewed, including an updated exam of the patient. There are NO changes in the patient's condition. Risks, benefits, and alternatives have been discussed and questions answered. Patient agrees to proceed with procedure.
[2023-05-25] MEDS: BENZOCAINE (*SP) 60 ML SPRAY CAN (HURRICAINE) 1 SPRAY MUCOUS MEM (10:23)
[2023-05-25 10:29] VITALS: BP 123/73; PULSE 51; RESP 12; O2SAT 95
[2023-05-25 10:39] VITALS: BP 112/72; PULSE 51; RESP 20; O2SAT 99
[2023-05-25 10:49] VITALS: BP 110/75; PULSE 50; RESP 18; O2SAT 99
== END 2023-05-25 11:01 | disposition home or self-care (01) ==
PROVIDERS: PCP Family Medicine; Visit Provider Internal Medicine Gastroenterology
PROC: 0DJ08ZZ Inspection of Upper Intestinal Tract, Via Natural or Artificial Opening Endoscopic (ICD-10-PCS; CPT 43235; principal; 2023-05-25 09:45)
DX: K30 Functional dyspepsia (principal); K44.9 Diaphragmatic hernia without obstruction or gangrene; K21.9 Gastro-esophageal reflux disease without esophagitis; I25.10 Atherosclerotic heart disease of native coronary artery without angina pectoris; E78.5 Hyperlipidemia, unspecified; I10 Essential (primary) hypertension; Z87.891 Personal history of nicotine dependence
CPT/HCPCS: 43239; 88305; J2704; J7120